=== PATIENT | female | born 1990 | race Caucasian/White ===

== ENCOUNTER 2023-04-05 21:53 | Emergency (ER) | payer OTHER, SELFPAY ==
[2023-04-05 21:56] VITALS: BP 138/97; PULSE 82; RESP 18; TEMP 35.9; O2SAT 100; BMI 46.3
--- NOTE | 2023-04-05 22:58 | US_ITS ---
STUDY: SECOND AND THIRD TRIMESTER OBSTETRICAL ULTRASOUND - LIMITED REASON FOR EXAM: Female, 32 years old pelvic cramping COMPARISON: None TECHNIQUE: Transabdominal sonographic images of the pelvis. FINDINGS: There is a single intrauterine . The fetus is in the cephalic presentation. The heart rate measures 171 BPM. Amniotic fluid volume appears grossly normal. The placenta is posterior. Posterior to the edge of the placenta is a 1.2 x 1.5 x 1.3 cm anechoic fluid collection without vascularity. BIOMETRY: BPD: 2.8 cm: 15 weeks, 0 days HC: 11.3 cm: 15 weeks, 3 days AC: 8.3 cm: 14 weeks, 5 days FL: 1.4 cm: 14 weeks, 0 days age by today''s US: 14 weeks, 5 days and YAS of 09/29/2023. Estimated weight: 97 grams corresponding to the 34th percentile. US/OB Limited With Biometrics IMPRESSION: 1. Single live intrauterine in the cephalic presentation with a posterior placenta. 2. 1.5 cm fluid collection posterior to the edge of the placenta of unknown clinical significance. Electronically Signed: Kush Kimball DO at 0:00 EST ,
--- NOTE | 2023-04-05 22:59 | ED.VIS.FEGU ---
HPI HPI - Female History of Present Illness Chief Complaint: Vag Bld, Preg Narrative Narrative: 32-year-old female A0 currently at 14-1/2 weeks presenting with spotting for the last few hours. She states her TRANSFER DRIVER is Dr. Hernandez at [place]. Patient states she has had some mild back cramping but other than that she feels well. She states she needs refills this with her and it is more in the back and the front. Denies any urinary complaints. Other than minor spotting has not seen any passage of tissue, clot. No fevers or chills. Patient states he is O+ and is never required RhoGAM. She has a same father for all 3 children. Patient states she had obstetrics ultrasound March 18 at [place] which showed a confirmed intrauterine . [facility] Medical History Preeclampsia Home Medications vit no.[id number] 1 tab PO DAILY 04/05/23 [History Last Taken Unknown] Allergy/AdvReac Type Severity Reaction Status Date / Time Sulfa (Sulfonamide AdvReac Mild Anaphylaxis Verified 04/05/23 21:58 Antibiotics) Social History Smoking Status: Unknown if ever smoked ROS ROS ED Constitutional Constitutional ED: Denies chills, fever(s) or sweats Eyes Eyes: Denies blurry vision or change in vision ENT ENT ED: Denies ear pain or sore throat Cardiovascular Cardiovascular: Denies chest pain, palpitations or racing heartbeat Respiratory/Chest Respiratory/Chest: Denies cough, dyspnea or sputum Gastrointestinal Gastrointestinal: Reports other; Denies abdominal pain, constipation, diarrhea, nausea or vomiting Genitourinary Genitourinary ED: Reports other Details: Vaginal spotting ; Denies dysuria, hematuria or urinary frequency Musculoskeletal Musculoskeletal: Reports other Details: Lower back pain ; Denies arthralgias, myalgias or neck pain Integumentary Denies abscess, Abrasions or rash Neurologic Neurologic: Denies headache(s), paresthesias or weakness Psychiatric Psychiatric: Denies anxiety, depression, suicidal ideation or suicidal thoughts Endocrine Endocrinology: Denies polydipsia or polyuria EXAM Physical Exam Const Vital Signs: 04/05/23 21:56 Temperature 96.6 F L Temperature Source Temporal Pulse Rate 82 Respiratory Rate 18 Blood Pressure 138/97 H Blood Pressure Mean 110 Pulse Ox 100 Oxygen Delivery Method Room Air Positive well nourished General Appearance ED: NAD; Negative for pallor HEENT Reports TM's clear and moist mucous membranes Tympanic Membrane ED: Yes TM's clear Eyes PERRL and EOMs intact bilaterally Neck no lymphadenopathy Chest Wall inspection of chest normal Resp normal respiratory effort Auscultation: Negative for rales, rhonchi or wheezes Cardio regular rate and regular rhythm GI normal to inspection, nondistended, normoactive bowel sounds Back/Spine no CVA tenderness Neuro oriented x3 Motor Exam: strength 5/5 throughout Psych mental status grossly normal Skin no rashes or lesions noted General Skin Exam: Negative for jaundice or pallor MDM MDM MDM Narrative Medical decision making narrative: 32-year-old female presenting with lower back pain. She is having some vaginal spotting as well. Bedside ultrasound performed by ED physician shows heart tones 166. Fetus visualized with slight movement. Possibly visualized is a subchorionic hemorrhage. Patient with no pain on examination. Will obtain a chest show ultrasound, urinalysis, quantitative hCG. hCG returned at 24,707. Transvaginal ultrasound shows a live intrauterine with heart tones 177. There is a small fluid collection 1.5 cm at the edge of the center of unknown significance. Patient will be given discharge instruction to follow-up with her TRANSFER DRIVER. Return precaution discussed. Impression: 1. Threatened miscarriage Lab Data Attestation: I reviewed the patient's lab results. Labs: Laboratory Results - last 24 hr 04/05/23 22:42 HCG, Quant [id number] H Radiography Diagnostic Testing: Clinical Impression(s) from Imaging Studies Obstetrics Ultrasound 04/05/23 22:58 IMPRESSION: 1. Single live intrauterine in the cephalic presentation with a posterior placenta. 2. 1.5 cm fluid collection posterior to the edge of the placenta of unknown clinical significance. Electronically Signed: Kush Kimball DO at 0:00 EST , Discharge Plan Triage Chief Complaint: Vag Bld, Preg ED Provider: Reagan,Erick Dx/Rx/DC Orders Instructions: Miscarriage Threatened Prescriptions: No Action vit no.[id number] [Classic ] 1 tab PO DAILY Primary Care Provider: Care Physician,No Primary Referrals: Care Physician,No Primary [Primary Care Provider] - Disposition Disposition: Home, Self Care
--- OUTSIDE RECORDS SUMMARY | 2023-04-05 23:59 | XMS RPT_ITS | CCD ---
Author Name Unknown Address [address] [place] [id number] Organization [facility] Care Team Providers Care Inspector Glass Or Mirror Name Role Phone Unavailable Primary Care Provider PHUC Steiner DO Primary Care Physician MICHAEL FAUST Attending Unavailable PHUC HEATON DO Primary Care Unavai lable Unavailable Primary Care Provider MICHAEL Cabral Referring Unavailable ROLLY PRESTON Attending Unavailable Allergies Allergy Classification Reported Allergen(s) Allergy Type Date of Onset Reaction(s) Facility (3 sources) Sulfamethoxazole; Translations: [sulfamethoxazole ] Drug Allergy 02-06-2023 Unknown [facility] Medications Current Medications Medication Drug Class(es) Dates Sig (Normalized) Sig (Original) amoxicillin 875 mg oral tablet (1 source) Penicillin-class Antibacterial Start: 02-06-2023 End: 02-16-2023 take 1 tablet by mouth twice daily amoxicillin (AMOXIL) 875 mg tablet Indications: Dental infection , Gingivitis Take 1 tablet by mouth two times a day for 10 days. 20 tablet 0 02/06/2023 02/16/2023 Active Completed/Discontinued Medications Medication Drug Class(es) Dates Sig (Normalized) Sig (Original) vits15/iron/folic/ds s ( AD ORAL) (1 source) Start: 03-05-2018 vits15/iron/folic/d ss ( AD ORAL) Oral, qDay, 0 Refill(s) 0 03/05/2018 Active Problems Active Problems Problem Classification Problem Date Documented Date Episodic/Chronic Administrative/social admission (1 source) Patient encounter status; Translations: [Persons encountering health services in other specified circumstances] Episodic Disorders of teeth and jaw (2 sources) Gingivitis; Translations: [Chronic gingivitis, plaque induced] Onset: 02-06-2023 02-06-2023 Chronic Disorders of teeth and jaw (2 sources) Infection of tooth; Translations: [Periapical abscess without sinus] Onset: 02-06-2023 02-06-2023 Episodic Immunizations and screening for infectious disease (1 source) Rubella non-immune 03-05-2018 Episodic Other nutritional; endocrine; and metabolic disorders (1 source) Body mass index 30+ - obesity 03-05-2018 Chronic Other skin disorders (1 source) Localized swelling, mass and lump, left upper limb; Translations: [Localized swelling, mass and lump, left upper limb] Onset: 11-13-2022 Episodic Polyhydramnios and other problems of amniotic cavity (1 source) Oligohydramnios 03-05-2018 Episodic Unclassified (1 source) Breast feeding () (observable entity) 03-07-2018 Past or Other Problems Problem Classification Problem Date Documented Da te Episodic/Chronic NEGATED: Highlighted row has been ruled out!Unclassified (1 source) No known active problems 02-06-2023 Results Test Name Value Interpretation Reference Range Facil ity Vital Signs Date Time Vital Sign Value Performing Clinician Faci lity 02-06-2023 16:24-0400 Body temperature 99.39 [degF] Rolly Preston MD Work Phone: [facility] 02-06-2023 16:24-0400 Diastolic blood pressure 92 mm[Hg] Rolly Preston MD Work Phone: [facility] 02-06-2023 16:24-0400 Heart rate 98 /min Rolly Preston MD Work Phone: [facility] 02-06-2023 16:24-0400 Respiratory rate 18 /min Rolly Preston MD Work Phone: [facility] 02-06-2023 16:24-0400 SaO2% (BldA) [Mass fraction] 97 % Rolly Preston MD Work Phone: [facility] 02-06-2023 16:24-0400 Systolic blood pressure 142 mm[Hg] Rolly Preston MD Work Phone: [facility] Encounters Encounter Date Encounter Type Care Provider Facility Start: 02-06-2023 End: 02-06-2023 ambulatory PRATHEEP PAWA Facility:[id number] Start: 02-06-2023 End: 02-06-2023 Office outpatient new 30 minutes Rolly Preston MD Work Phone: [facility] Plan of Treatment Date Care Activity Detail Author Start: 03-08-2028 Urine microalbumin profile DTa P,Tdap,Td Vaccine (2 - Td or Tdap) [facility] Start: 12-09-2022 [facility] Start: 2022 HPV TESTING HPV TESTING [facility] Start: 04-10-2022 DEPRESSION ASSESSMENT DEPRESSION ASS ESSMENT [facility] Start: 2013 PAP TESTING PAP TESTING [facility] Start: 11-02-2011 Urine microalbumin profile DTAP,TDAP ,TD (1 - Tdap) [facility] Start: 2010 HEPATITIS C SCREENING HEPATITIS C SC REENING [facility] Start: 2010 HIV SCREENING HIV SCREENING [facility] Start: 05-04-1993 COVID-19 VACCINE (#1) COVID-19 VACCI NE (#1) [facility] Start: 1992 HEPATITIS B (1 of 3 - 3-dose series) HEPATITIS B (1 of 3 - 3-dose series) [facility] Start: 1992 Hepatitis B Vaccine (1 of 3 - 3-dose series) Hepatitis B Vaccine (1 of 3 - 3-dose series) [facility] Immunizations Immunization Date Immunization Notes Care Provider Leila person 03-08-2018 tetanus toxoid, redu cornelia diphtheria toxoid, and acellular pertussis vaccine, adsorbed; Translations: [Boostrix (Tdap)] MICHAEL FAUST [facility] Payers Date Payer Category Payer Private Health Insurance [id number] 2022 Private Health Insurance [id number] 2022 Unknown [id number] 1992 Unknown [id number] Social History Date Type Detail [facility] Start: 1992 Sex Assigned At Not on file [facility] Start: 02-06-2023 Tobacco smoking status Never s moked tobacco (finding) [facility] Sex Assigned At Sex [facility] Start: 02-06-2023 Gender identity Not on file [facility] Start: 02-06-2023 Tobacco use and exposure Smokeless tobacco non-user [facility] Start: 02-06-2023 Alcohol intake Ex-drinker (finding) [facility] Start: 02-06-2023 History of Social function [facility] Adult Depression Screening Assessment 0 [facility] Progress note 02-06-2023 Note Date & Type Note Facility 02-06-2023 Note HNO ID: [id number] Author: Rolly Preston MD Service: ? Author Type: Physician Type: Progress Notes Filed: 02/06/2023 4:41 PM Note Text: Megan Gary is a 32 year old FEMALE who presents with Mouth/Lip Problem (Mouth pain x 3 days) 32 years old female present with swelling on the right side of her face She stated that she has longstanding bad teeth although not much of teeth pain right now Is appointment to see dentist in years But because of the swelling on the right side of her face coming up to area below the eye she decided to come to [facility] Is 7 weeks and has appointment to see OB in 2 weeks. No fever chills no body ache Mouth/Lip Problem Pertinent negatives include no chills or fever. History reviewed. No pertinent past medical history. There is no problem list on file for this patient. Current Outpatient Medications Medication Sig Dispense Refill vits15/iron/folic/dss ( AD ORAL) Oral, qDay, 0 Refill(s) No current facility-administered medications for this visit. Social History Tobacco Use Smoking status: Never Smokeless tobacco: Never Vaping Use Vaping Use: Never used Substance Use Topics Alcohol use: Not Currently Drug use: Not Currently Alcohol Use: Not Currently Tobacco Use: Never History reviewed. No pertinent family history. Review of Systems Constitutional: Negative for chills and fever. HENT: Facial pain Respiratory: Negative. Cardiovascular: Negative. BP 142/92 Pulse 98 Temp 99.4 Resp 18 SpO2 97% Physical Exam Vitals reviewed. Constitutional: General: She is not in acute distress. Appearance: Normal appearance. She is not ill-appearing or toxic-appearing. HENT: Head: Normocephalic and atraumatic. Comments: Examination of the face revealed mild erythema of the skin on the right cheek up to infraorbital area with mild puffiness but no obvious swelling or tenderness. Nose: Nose normal. Mouth/Throat: Comments: Exams of oral cavity she has decayed teeth the right upper jaw no obvious abscess was seen. But there is an area of gum above the molar on the right upper jaw. Neurological: Mental Status: She is alert. Explained to patient that it appears that her symptom is from infected gum and tooth. Put on amoxicillin but give her very strict instruction that if her symptoms get worse anytime she must go to the hospital see dentist as soon as possible. Patient understand and agreed ASSESSMENT/PLAN: 1. Dental infection - ICD9: 522.4, ICD10: K04.7 (primary diagnosis) - AMOXICILLIN 875 MG TABLET 2. Gingivitis - ICD9: 523.10, ICD10: K05.10 - AMOXICILLIN 875 MG TABLET Mouth wash, cold pack Take antibiotic as per prescription See Dentist [facility] for further treatment To ER if your symptoms get worse anytime Explained details Rolly Preston MD [facility] Instructions 02-06-2023 Patient Instructions Note Date & Type Note Facility 02-06-2023 Instructions Rolly Preston MD - 02/06/2023 4:39 PM EDT Mouth wash, cold pack Take antibiotic as per prescription See Dentist [facility] for further treatment To ER if your symptoms get worse anytime Explained details documented in this encounter [facility] History of Present illness Narrative 02-06-2023 Rolly Preston MD - 02/06/2023 4:31 PM EDT Note Date & Type Note Facility 02-06-2023 History of Presen t illness Narrative Megan Gary is a 32 year old FEMALE who presents with Mouth/Lip Problem (Mouth pain x 3 days) 32 years old female present with swelling on the right side of her face She stated that she has longstanding bad teeth although not much of teeth pain right now Is appointment to see dentist in years But because of the swelling on the right side of her face coming up to area below the eye she decided to come to [facility] Is 7 weeks and has appointment to see OB in 2 weeks. No fever chills no body ache Mouth/Lip Problem Pertinent negatives include no chills or fever. History reviewed. No pertinent past medical history. There is no problem list on file for this patient. Current Outpatient Medications Medication Sig Dispense Refill vits15/iron/folic/dss ( AD ORAL) Oral, qDay, 0 Refill(s) No current facility-administered medications for this visit. Social History Tobacco Use Smoking status: Never Smokeless tobacco: Never Vaping Use Vaping Use: Never used Substance Use Topics Alcohol use: Not Currently Drug use: Not Currently Alcohol Use: Not Currently Tobacco Use: Never History reviewed. No pertinent family history. Review of Systems Constitutional: Negative for chills and fever. HENT: Facial pain Respiratory: Negative. Cardiovascular: Negative. BP 142/92 Pulse 98 Temp 99.4 Resp 18 SpO2 97% Physical Exam Vitals reviewed. Constitutional: General: She is not in acute distress. Appearance: Normal appearance. She is not ill-appearing or toxic-appearing. HENT: Head: Normocephalic and atraumatic. Comments: Examination of the face revealed mild erythema of the skin on the right cheek up to infraorbital area with mild puffiness but no obvious swelling or tenderness. Nose: Nose normal. Mouth/Throat: Comments: Exams of oral cavity she has decayed teeth the right upper jaw no obvious abscess was seen. But there is an area of gum above the molar on the right upper jaw. Neurological: Mental Status: She is alert. Explained to patient that it appears that her symptom is from infected gum and tooth. Put on amoxicillin but give her very strict instruction that if her symptoms get worse anytime she must go to the hospital see dentist as soon as possible. Patient understand and agreed ASSESSMENT/PLAN: 1. Dental infection - ICD9: 522.4, ICD10: K04.7 (primary diagnosis) - AMOXICILLIN 875 MG TABLET 2. Gingivitis - ICD9: 523.10, ICD10: K05.10 - AMOXICILLIN 875 MG TABLET Mouth wash, cold pack Take antibiotic as per prescription See Dentist [facility] for further treatment To ER if your symptoms get worse anytime Explained details Rolly Preston MD documented in this encounter [facility] History of Present illness Narrative 03-06-2020 Guerda Mayfield MD - 03/06/2020 12:40 PM EST Note Date & Type Note Facility 03-06-2020 History of Present illness Narrative DATE OF SERVICE: 03/04/2020 HISTORY OF PRESENT ILLNESS: A 29-year-old female with chief complaint of 5 days of chills, body aches, runny nose, sore throat, headache, loss of taste and smell, fatigue, cough. She has not taken any medicine for her symptoms. PAST MEDICAL HISTORY: She has no past medical history. Currently 16 weeks . MEDICATIONS: 1. vitamins. 2. Currently on Keflex for a urinary tract infection. ALLERGIES: SULFA. SOCIAL HISTORY: No tobacco or alcohol use. FAMILY HISTORY: No family history. PHYSICAL EXAMINATION: Vital signs are within normal limits. She is in no acute distress. Tympanic membranes are intact. Nasal turbinate hypertrophy. Oral mucosa is moist, normal posterior or cervical lymphadenopathy. Heart is regular rate and rhythm. No murmurs, rubs or gallops. Lungs are clear to auscultation bilaterally. I discharge swab her for COVID-19. ASSESSMENT: Upper respiratory infection, rule out COVID-19. PLAN: Robitussin DM, hydration, Tylenol, isolation. Guerda Mayfield MD /[id number] [facility] File#: [id number] END OF DOCUMENT / CHANGE LOG FOLLOWS Last Edited By Elec. Signed By Guerda Mayfield MD #TANAMA Guerda Mayfield MD #COBMA on 03/17/2020 09:31 ET on 03/17/2020 09:31 ET Revision Number - 2 ^^^ Verified/Reviewed by 03/17/20930 [facility] PATIENT NAME: MEGAN GARY [address] [place] MEDICAL REC #: [id number] [place] [address] [facility] documented in this encounter [facility] Evaluation + Plan note Note Date & Type Note Facility Evaluation + Plan note No data available for this section [facility] Evaluation note Note Date & Type Note Facility documented in this encounter [facility] Discharge instructions Note Date & Type Note Facility Hospital Discharge instructions No data available for this section [facility] Progress note Note Date & Type Note Facility Progress note No data available for this section [facility] Summary Purpose Family History No Family History Records FoundNo Family History Records FoundNo Family History Records Found Advance Directives No Advanced Directives Records FoundNo Advanced Directives Records FoundNo Advanced Directives Records Found Additional Source Comments INFORMATION SOURCE (unrecogn ized section and content) DATE CREATED AUTHOR AUTHOR'S ORGANIZ ATION 08/14/2022 [facility] ([place]) DATE CREATED AUTHOR AUTHOR'S ORGANIZ ATION 02/07/2023 [facility] nter Source Comments (unrecognize d section and content) In the event this informatio n is protected by the Federal Confidentiality of Alcohol and Drug Abuse Patient Records regulations: The Federal rules restrict any use of the information to criminally investigate or prosecute any alcohol or drug abuse patient.[facility] the event this information is protected by the Federal Confidentiality of Alcohol and Drug Abuse Patient Records regulations: The Federal rules restrict any use of the information to criminally investigate or prosecute any alcohol or drug abuse patient.[facility] the event this information is protected by the Federal Confidentiality of Alcohol and Drug Abuse Patient Records regulations: The Federal rules restrict any use of the information to criminally investigate or prosecute any alcohol or drug abuse patient.[facility] Patient Care team informatio n (unrecognized section and content) Care Team Personnel Name: PHUC HEATON DO Member Role: Primary Care Physician Address: Address: [address] [place] [id number] [place] Care Team Related Persons Name: BRITTANY BUENO Address: Home [address] [place] [address] [place] Name: MADELEINE GARY Address: Home [address] [place] [address] [place] Name: LYNDA GARY Address: Home [address] [place] [address] [place] Name: JAYA GARY Address: Home [address] [place] [id number] Reason for Visit (unrecogniz ed section and content) FOR RECORDS PERTAINING TO PATIENTS WHO ARE OR HAVE BEEN ENROLLED IN A CHEMICAL DEPENDENCY/SUBSTANCEABUSE PROGRAM, SOME INFORMATION MAY BE OMITTED. This clinical summary was aggregated from multiple sources. Caution should be exercised in using it in the provision of clinical care. This summary normalizes information from multiple sources, and as a consequence, information in this document may materially change the coding, format and clinical context of patient data. In addition, data may be omitted in some cases. CLINICAL DECISIONS SHOULD BE BASED ON THE PRIMARY CLINICAL RECORDS. [facility] [employer] [facility]. provides no warranty or guarantee of the accuracy or completeness of information in this document.
[2023-04-06] LABS: hCG Titer Quant., Serum 24707 mIU/mL (1-3)
--- NOTE | 2023-04-06 00:15 | ED.VIS.FEGU ---
HPI HPI - Female History of Present Illness Chief Complaint: Vag Bld, Preg PFSH PFSH Medical History Preeclampsia Home Medications vit no.[id number] 1 tab PO DAILY 04/05/23 [History Last Taken Unknown] Allergy/AdvReac Type Severity Reaction Status Date / Time Sulfa (Sulfonamide AdvReac Mild Anaphylaxis Verified 04/05/23 21:58 Antibiotics) Social History Smoking Status: Unknown if ever smoked EXAM Physical Exam Const Vital Signs: 04/05/23 21:56 Temperature 96.6 F L Temperature Source Temporal Pulse Rate 82 Respiratory Rate 18 Blood Pressure 138/97 H Blood Pressure Mean 110 Pulse Ox 100 Oxygen Delivery Method Room Air MDM MDM MDM Narrative Medical decision making narrative: Patient presenting with Lab Data Attestation: I reviewed the patient's lab results. Labs: Laboratory Results - last 24 hr 04/05/23 04/06/23 22:42 00:09 HCG, Quant [id number] H Urine Color Yellow Urine Clarity Clear Urine pH 6.0 Ur Specific [place] 1.025 Urine Protein 15 H Urine Glucose (UA) Normal Urine Ketones 150 A* Urine Occult Blood 25 H Urine Nitrite Negative Urine Bilirubin Negative Urine Urobilinogen Normal Ur Leukocyte Esterase Negative Urine RBC 0 SEEN Urine WBC 0 SEEN Ur Squamous Epith Cells 0 SEEN Urine Bacteria 0 SEEN Urine Mucus 0 SEEN Radiography Diagnostic Testing: Clinical Impression(s) from Imaging Studies Obstetrics Ultrasound 04/05/23 22:58 IMPRESSION: 1. Single live intrauterine in the cephalic presentation with a posterior placenta. 2. 1.5 cm fluid collection posterior to the edge of the placenta of unknown clinical significance. Electronically Signed: uKsh Kimball DO at 0:00 EST , Discharge Plan Triage Chief Complaint: Vag Bld, Preg ED Provider: Erick Kirk Dx/Rx/DC Orders Instructions: Miscarriage Threatened Prescriptions: No Action vit no.[id number] [Classic ] 1 tab PO DAILY Primary Care Provider: Care Physician,No Primary Referrals: Care Physician,No Primary [Primary Care Provider] - Disposition Disposition: Home, Self Care Discharge Date/Time: 04/06/23 01:25
[2023-04-06 00:19] LABS: Bacteria 0 SEEN /hpf (None Seen); Mucous, Urine 0 SEEN /hpf (<or=2+); Red Blood Cells-Urine 0 SEEN /hpf (0-5); Squamous Epithelial Cells - UA 0 SEEN /hpf (5-10); White Blood Cells 0 SEEN /hpf (0-5)
[2023-04-06 00:20] LABS: Color, Urine Yellow (Yellow); Glucose, Dipstick Normal (Normal); Leukocyte Esterase-Dipstick Negative /ul (Negative); Nitrite-Dipstick Negative (Negative); Occult Blood-Urine 25 /ul (Negative); Protein-Dipstick 15 mg/dl (Negative); Specific Gravity, Urine 1.025 (1.002-1.030); Urine Bilirubin Dipstick Negative (Negative); Urine Clarity Clear (Clear); Urine Urobilinogen Normal (Normal)
[2023-04-06 00:24] LABS: Ketone-Dipstick 150 mg/dl (Negative)
== END 2023-04-06 01:25 | disposition home or self-care (01) ==
PROVIDERS: Emergency Provider Student in an Organized Health Care Education/Training Program; Visit Provider Student in an Organized Health Care Education/Training Program
DX: O20.0 Threatened abortion (principal); Z3A.14 14 weeks gestation of pregnancy
CPT/HCPCS: 76816; 81001; 84702; 99282